=== PATIENT | female | born 1965 | race Caucasian/White ===

== ENCOUNTER → 2023-05-27 17:23 | Outpatient (REF) | payer BC, SELFPAY | LOC: MRI 17:23 | PROVIDERS: ATTENDING PHYSICIAN Physician Assistant Medical; FAMILY PHYSICIAN Family Medicine | DX: D32.9 Benign neoplasm of meninges, unspecified (principal) | CPT/HCPCS: 70553; A9575 ==

== ENCOUNTER → 2023-11-13 09:25 | Outpatient (REF) | payer BC, SELFPAY | LOC: RAD 09:25 | PROVIDERS: ATTENDING PHYSICIAN Physician Assistant | DX: M25.511 Pain in right shoulder (principal); M25.531 Pain in right wrist | CPT/HCPCS: 73030; 73110 ==

== ENCOUNTER → 2024-06-15 07:38 | Outpatient (REF) | payer BC, SELFPAY | LOC: RAD 07:38 | PROVIDERS: ATTENDING PHYSICIAN Family Medicine | DX: G89.29 Other chronic pain (principal); M89.319 Hypertrophy of bone, unspecified shoulder; M25.511 Pain in right shoulder | CPT/HCPCS: 73000 ==

== ENCOUNTER → 2024-06-30 16:04 | Outpatient (REF) | payer BC, SELFPAY | LOC: MRI 3T 16:04 | PROVIDERS: ATTENDING PHYSICIAN Family Medicine; FAMILY PHYSICIAN Physician Assistant | DX: G89.29 Other chronic pain (principal); M25.511 Pain in right shoulder; M89.319 Hypertrophy of bone, unspecified shoulder | CPT/HCPCS: 70553; 73221; A9575 ==